=== PATIENT | female | born 1965 ===

== ENCOUNTER 2017-07-06 10:26 | Day surgery (SDC) | payer OTHER ==
[~2017-07-06 10:26] MED LIST: Buffered Lidocaine 0.9% SYRIN* 5 ML/SYR SYRINGE INTRADERM ONE; Dexamethasone IV* 4 MG/ML 1 ML (4 MG) IV SLOW PU ONE; Famotidine IV* 10 MG/ML 2 ML (20 mg) IV ONE
[2017-07-06] MEDS ORDERED: Famotidine IV* 10 MG/ML 2 ML (20 mg) ONE (10:46)
[2017-07-06] MEDS ORDERED: ceFAZolin 2 GM PREMIX (*) 2 GM/50 ML BAG IVPB ONE (10:46)
[2017-07-06] MEDS ORDERED: Dexamethasone IV* 4 MG/ML 1 ML (4 MG) ONE (10:46)
[2017-07-06] MEDS ORDERED: Bupivacaine 0.25% SDV* 30 ML ONE (14:20)
[2017-07-06] MEDS ORDERED: Midazolam* 1 MG/ML 2 ML VIAL (2 MG) ONE (14:21)
[2017-07-06] MEDS ORDERED: fentaNYL* 50 MCG/ML 2 ML VIAL (100 MCG VIAL) ONE ×2 (14:21→15:24)
[2017-07-06] MEDS ORDERED: Propofol* 10 MG/ML 20 ML BTL IV PUSH ONE ×2 (14:35→15:22)
[2017-07-06] MEDS ORDERED: Lidocaine 2% PF * 5 ML VIAL ONE (14:35)
[2017-07-06] MEDS ORDERED: HYDROcodone/ACETAMIN 5-325 MG* 1 TAB PO PRN (14:53)
[2017-07-06] MEDS ORDERED: Naloxone* 0.4 MG/ML 1 ML VIAL IV PRN (14:53)
[2017-07-06] MEDS ORDERED: fentaNYL* 50 MCG/ML 2 ML VIAL (100 MCG VIAL) IV PRN (14:53)
[2017-07-06] MEDS ORDERED: Ondansetron INJ* 2 MG/ML VIAL IV PRN (14:53)
[2017-07-06] MEDS ORDERED: Ondansetron INJ* 2 MG/ML VIAL ONE (15:25)
[2017-07-06 16:01] VITALS: BP 100/59
--- NOTE | 2017-07-07 07:40 | OP ---
DATE OF OPERATION: 07/06/17 [facility] DATE OF : 63 SURGEON: Abdiel Herrera MD PROJECT ECONOMIST: SHONNA Tran ANESTHESIOLOGIST: Joshua Diaz MD ANESTHESIA: Local MAC. PRE-OP DIAGNOSES: Right thumb interphalangeal joint dislocation with diastasis and compete instability of the joint and extensor tendon rupture. POST-OP DIAGNOSES: Right thumb interphalangeal joint dislocation with diastasis and compete instability of the joint and extensor tendon rupture. OPERATIVE PROCEDURE: 1. Open reduction and removal of interposed radial collateral ligament with pinning of the interphalangeal joint. 2. Right thumb interphalangeal joint radial and ulnar collateral ligament repairs. 3. Right thumb extensor tendon, insertional tendon rupture repair with 2 DePuy mini Mitek suture anchors. INDICATIONS: Edyta had a 50-feet rope that was attached to her dog. It tangled around the thumb and it pulled the thumb, rupturing all of the soft tissues about the thumb except for the flexor tendon attachment. Joint was diastased and completely unstable. We talked about her surgical options. I told her the joint would likely need to be pinned and we had to repair the extensor tendon. She wanted to proceed. ESTIMATED BLOOD LOSS: 2 mL. COMPLICATIONS: None. FINDINGS: See above and below. DESCRIPTION OF PROCEDURE: Edyta was seen in the preoperative holding area. The correct site, side, and procedure were identified. We came back to the operating room, where I infiltrated the operative area with 0.25% plain Marcaine via thumb block. The arm was then prepped and draped in the usual fashion. A time-out was performed. The arm was exsanguinated with the Esmarch and the tourniquet was inflated to 250 mmHg. I then made an H-shaped incision over the dorsum of the interphalangeal joint. The tendon was noted to be ruptured off its insertion. Both collateral ligaments were ruptured. The radial collateral ligament was flipped over and interposed in the joint. The flexor tendon was seemed to be attached volarly. The joint was completely unstable. First thing I did was place one pin across the interphalangeal joint to hold it in the reduced position. After that was accomplished, I then put one [id number] 4-0 Ethibond suture through the radial collateral ligament and then I placed another [id number] 4-0 Ethibond suture through the ulnar collateral ligament to repair both the radial and ulnar collateral ligaments. Once that was done, I turned my attention to the extensor tendon. I placed two DePuy mini Mitek suture anchors; one on the ulnar side of the wire, then one on the radial side of the wire. I then used a 2-0 Ethibond suture to whipstitch into the tendon and then the tendon was pulled down to the bone and tied off in standard fashion. I then did run my whipstitch after tying off the initial stitch. It did run both tails of the suture up proximally into the tendon and tied off the suture again to secure the repair. Once I had repaired the extensor tendon, I took some final fluoroscopic imaging. It did look like the barbs of the mini Mitek anchors were deployed and gotten caught on the wire, so they were seen a little bit more palmar and just barely exiting out the palmar surface of the distal phalanx. However, it was just barely exiting out the palmar surface. Everything was looking good, so there was nothing to be changed. I went ahead and irrigated out the wound. The skin was closed with 4- 0 nylon suture. The wire was bent and clipped. The wounds were dressed with Xeroform, gauze, and then Alumafoam splint was applied with Coban. Tourniquet was deflated. The thumb pinked up immediately. She was woken up and taken to the recovery room in stable condition. [id number]/[facility] #: [id number] TO
--- NOTE | 2017-07-07 14:40 | RAD ---
INDICATION: Right thumb. No other history is provided. COMPARISONS: None relevant TECHNIQUE: Fluoroscopy was provided for a surgical procedure. Total fluoroscopy time is: 25 seconds FINDINGS: Spot images demonstrate percutaneous fixation across the first interphalangeal joint with postsurgical change to the distal phalanx. IMPRESSION: FLUOROSCOPY WAS PROVIDED FOR A SURGICAL PROCEDURE CPT II Codes: G9500
== END 2017-07-06 16:00 | disposition home or self-care (01) ==
LOC: OREAST 10:26
PROVIDERS: ATTEND Orthopaedic Surgery Hand Surgery
DX: S63.124A Dislocation of interphalangeal joint of right thumb, initial encounter (principal); S66.211A Strain of extensor muscle, fascia and tendon of right thumb at wrist and hand level, initial encounter; W23.0XXA Caught, crushed, jammed, or pinched between moving objects, initial encounter; Y93.K1 Activity, walking an animal; Y92.9 Unspecified place or not applicable; F41.9 Anxiety disorder, unspecified
CPT/HCPCS: 76000; 81025; C1713; C1776; J0690; J1100; J2250; J2405; J2704; J3010